=== PATIENT | male | born 1950 | race Caucasian/White ===

== ENCOUNTER → 2016-09-20 | Outpatient (CLI) | payer BC ==
[~2016-09-20] MED LIST: ADVIL200 MG PO; AVODART0.5 MG PO; CALCITRIOL0.25 MC1 PO; CALCITRIOL0.25 MCG PO; CALCIUM 600 +1 EAC2 PO; CALCIUM600 M1 PO; FINASTERIDE5 MG PO; LEVOTHROID,S0.175 M1 PO; LEVOTHYROXINE200 MC1 PO; LITE COAT ASPI325 M1 PO; METOPROLOL TART25 MG PO; OSCAL, OYSTER500 MG PO; RAPAFLO8 MG PO; SYNTHROID200 MCG PO; SYNTHROID25 MCG PO; SYSTANE ULTRA 015 ML BOTH EYES; TAMSULOSIN HCL0.4 MG PO
== END | disposition home or self-care (01) ==
LOC: NUC 08:57
DX: C61 Malignant neoplasm of prostate (principal)
CPT/HCPCS: 78306; A9503

== ENCOUNTER → 2016-11-03 | Outpatient (CLI) | payer BC ==
[~2016-11-03] VITALS: Ht 180.3 cm; Wt 108.9 kg
[~2016-11-03] MED LIST changes: +ATORVASTATIN CA10 MG PO; +CALCIUM 600 +1 EA11 PO; +LO-DOSE ASPIRIN81 M2 PO
[2016-11-03 08:23] LABS: HEMATOCRIT 43.8 % (38.0-50.0); MCH 30.6 PG (29.0-34.0); MCHC 33.8 G/DL (30.0-36.0); MCV 90.5 FL (86-99); PLATELET COUNT 180 K/uL (156-360); RBC DIS.WIDTH-CV 13.4 % (11.8-14.6); RBC DIS.WIDTH-SD 44.2 % (39-53); RED BLOOD COUNT 4.84 M/uL (4.00-5.50)
[2016-11-03 08:37] LABS: PROTHROMBIN TIME 10.6 (9.2-11.2); PTT 30.6 (25-32)
== END | disposition home or self-care (01) ==
LOC: OPR 10-25 08:00 → EDSTATUS 08:00 → OPR 08:00
PROVIDERS: Radiology Diagnostic Radiology
DX: N28.89 Other specified disorders of kidney and ureter (principal); Z85.46 Personal history of malignant neoplasm of prostate
CPT/HCPCS: 77012; 85027; 85610; 85730; 88305; J3010